=== PATIENT | female | born 1950 | race Caucasian/White ===

== ENCOUNTER → 2017-12-08 | Outpatient (CLI) | payer MEDICARE, BC ==
--- NOTE | 2017-12-08 13:39 | Diagnostic Imaging Report ---
PROCEDURE:X-RAY LEFT FINGER COMPARISON:None. INDICATIONS:ARTHRITIS FINDINGS: Normal mineralization. No acute fracture or dislocation. Mild degenerative changes of the first interphalangeal and metacarpophalangeal joints. Moderate degenerative changes of the first carpometacarpal joint. Soft tissues are unremarkable. 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 Dictated by: Mike Glass M.D. on 12/08/2017 at 13:39 Electronically approved by: Mike Glass M.D. on 12/08/2017 at 13:39
--- NOTE | 2017-12-08 13:41 | Diagnostic Imaging Report ---
PROCEDURE:X-RAY LEFT KNEE, THREE OR MORE VIEWS COMPARISON:Knee radiograph 11/30/2016 INDICATIONS:ARTHRIRIS FINDINGS: The bones are well-mineralized. There are no fractures, subluxations, lytic or blastic lesions. Mild patellofemoral compartment degenerative changes with slight osteophytosis. Trace suprapatellar joint effusion. CONCLUSION: Mild patellofemoral compartment degenerative changes. Dictated by: Mike Glass M.D. on 12/08/2017 at 13:42 Electronically approved by: Mike Glass M.D. on 12/08/2017 at 13:42
== END ==
LOC: RAD 12:28
PROVIDERS: ATTEND Family Medicine
DX: M79.645 Pain in left finger(s) (principal); M25.562 Pain in left knee